=== PATIENT | female | born 1950 | race Caucasian/White ===

== ENCOUNTER 2022-04-08 15:29 | Inpatient (IN) | payer MEDICAID ==
[~2022-04-08] VITALS: Ht 154.9 cm; Wt 59.9 kg
[2022-04-08] MEDS ORDERED: SODIUM CHLORIDE 0.9% 1,000 ML IV ONE (16:45)
[2022-04-08] MEDS ORDERED: CEFTRIAXONE 1GM PREMIX 50 ML IV ONE (16:45)
[2022-04-08] MEDS ORDERED: VANCOMYCIN 1G PREMIX 200 ML IV SCH (16:45)
[2022-04-08] MEDS ORDERED: CEFTRIAXONE 1GM PREMIX 50 ML IV NR (18:30)
[2022-04-08 18:34] LABS: HEMATOCRIT. 23.1 % (36.0-48.0); HEMOGLOBIN. 7.4 g/dL (12.0-16.0); MEAN CORPUSCULAR HEMOGLOBIN 30.5 pg (28.0-32.0); MEAN CORPUSCULAR VOLUME 95.1 fL (81.0-99.0); MEAN PLATELET VOLUME 8.6 fl (7.4-10.4); PLATELET 314 x1000/uL (130-400); RED BLOOD CELL COUNT 2.43 mill/uL (4.2-5.4); RED CELL DISTRIBUTION WIDTH 15.2 % (11.6-14.6)
[2022-04-08 18:42] LABS: CHLORIDE 99 mEq/L (98-107)
[2022-04-08 19:05] LABS: PLATELET ESTIMATE NORMAL
[2022-04-08] MEDS ORDERED: DEXTROSE 50% WATER 50ML SYRINGE IV PRN (23:15)
[2022-04-08] MEDS ORDERED: ONDANSETRON HCL 4MG/2ML INJ IV PRN (23:15)
[2022-04-08] MEDS ORDERED: CLONIDINE 0.1MG TABLET PO PRN (23:15)
[2022-04-08] MEDS ORDERED: ACETAMINOPHEN 325MG TABLET PO PRN (23:15)
[2022-04-08] MEDS ORDERED: ZOLPIDEM TARTRATE 5MG TABLET PO PRN (23:15)
[2022-04-08] MEDS ORDERED: IPRATROPIUM/ALBUTEROL 0.5-3(2.5)MG/3ML NEB HHN PRN (23:15)
[2022-04-08] MEDS ORDERED: GUAIFENESIN 200MG/10ML SUGAR FREE UDC PO PRN (23:15)
[2022-04-09] VITALS (8 sets, daily range): BP systolic 98–121; BP diastolic 45–59
[2022-04-09] MEDS ORDERED: CEFTRIAXONE 1GM PREMIX 50 ML IV SCH
[2022-04-09 02:22] LABS: VITAMIN B12 SERUM > 2000.0 pg/mL (211-911)
[2022-04-09] MEDS ORDERED: METRONIDAZOLE 500 MG PREMIX 100 ML IV SCH (06:00)
[2022-04-09] MEDS ORDERED: VANCOMYCIN 1G PREMIX 200 ML IV NR (08:00)
[2022-04-09] MEDS: BLOOD SUGAR DIAGNOSTIC STRIP TEST SCH ×3 (11:50→21:42)
[2022-04-09] MEDS: INSULIN LISPRO 100 UNITS/ML SUBCUT SCH ×3 (12:20→21:00)
[2022-04-09] MEDS: ENOXAPARIN 30MG/0.3ML SYR SUBCUT SCH (12:32)
[2022-04-09] MEDS ORDERED: ATORVASTATIN CALCIUM 40MG TABLET PO SCH (21:00)
[2022-04-09 21:16] LABS: CREATINE KINASE MB FRACTION 8.3 ng/mL (0.5-3.6)
[2022-04-09] MEDS: FAMOTIDINE 20MG TABLET PO SCH (21:38)
[2022-04-09] MEDS: ATORVASTATIN CALCIUM 40MG TABLET PO SCH (21:39)
[2022-04-09] MEDS ORDERED: FUROSEMIDE 40MG/4ML VIAL IVP NR (22:15)
[2022-04-09] MEDS: CEFTRIAXONE 1,000 MG in DEXTROSE 5% WATER 50 ML IV SCH (22:37)
[2022-04-10] VITALS (15 sets, daily range): BP systolic 103–142; BP diastolic 53–73
[2022-04-10] MEDS: BLOOD SUGAR DIAGNOSTIC STRIP TEST SCH ×4 (06:55→21:00)
[2022-04-10] MEDS: INSULIN LISPRO 100 UNITS/ML SUBCUT SCH ×4 (07:20→22:25)
[2022-04-10 07:47] LABS: CHLORIDE 102 mEq/L (98-107)
[2022-04-10 07:53] LABS: BASOPHILS % 0.5 % (0.0-2.0); EOSINOPHILS % 0.7 % (0.0-5.0); LYMPHOCYTES % 9.5 % (20.0-50.0); MEAN CORPUSCULAR HEMOGLOBIN 30.6 pg (28.0-32.0); MEAN CORPUSCULAR VOLUME 99.3 fL (81.0-99.0); MEAN PLATELET VOLUME 8.8 fl (7.4-10.4); MONOCYTES % 4.8 % (2.0-8.0); NEUTROPHILS % 84.5 % (40.0-76.0); PLATELET 267 x1000/uL (130-400); RED BLOOD CELL COUNT 2.08 mill/uL (4.2-5.4); RED CELL DISTRIBUTION WIDTH 16.2 % (11.6-14.6)
[2022-04-10 07:56] LABS: PHOSPHORUS 4.3 mg/dL (2.5-4.9)
[2022-04-10 07:59] LABS: CREATINE KINASE MB FRACTION 6.1 ng/mL (0.5-3.6)
[2022-04-10 08:09] LABS: HEMATOCRIT. 20.7 % (36.0-48.0); HEMOGLOBIN. 6.4 g/dL (12.0-16.0)
[2022-04-10] MEDS: ASPIRIN 81MG TABLET PO SCH (08:48)
[2022-04-10] MEDS: EZETIMIBE 10MG TABLET PO SCH (08:48)
[2022-04-10] MEDS: ENOXAPARIN 30MG/0.3ML SYR SUBCUT SCH (08:49)
[2022-04-10] MEDS: ISOSORBIDE MONONITRATE 60MG TABLET SR 24HR PO SCH (08:49)
[2022-04-10] MEDS ORDERED: SODIUM POLYSTYRENE SULFONATE 15 G/60 ML BOT PO SCH (10:00)
[2022-04-10] MEDS ORDERED: VANCOMYCIN 750MG PREMIX 150 ML IV SCH (14:00)
[2022-04-10 14:20] LABS: HEPATITIS B SURFACE ANTIGEN NEGATIVE
[2022-04-10] MEDS: CEFTRIAXONE 1,000 MG in DEXTROSE 5% WATER 50 ML IV SCH (18:40)
[2022-04-10] MEDS: FAMOTIDINE 20MG TABLET PO SCH (22:11)
[2022-04-10] MEDS: ATORVASTATIN CALCIUM 40MG TABLET PO SCH (22:11)
[2022-04-10] MEDS: EPOETIN ALFA-EPBX 4,000 UNIT/ML VIAL SUBCUT SCH (22:27)
[2022-04-11] VITALS (9 sets, daily range): BP systolic 106–145; BP diastolic 47–79
[2022-04-11] MEDS: BLOOD SUGAR DIAGNOSTIC STRIP TEST SCH ×4 (06:50→20:57)
[2022-04-11 06:59] LABS: BASOPHILS % 0.8 % (0.0-2.0); EOSINOPHILS % 1.2 % (0.0-5.0); LYMPHOCYTES % 10.4 % (20.0-50.0); MEAN CORPUSCULAR HEMOGLOBIN 31.4 pg (28.0-32.0); MEAN CORPUSCULAR VOLUME 95.9 fL (81.0-99.0); MEAN PLATELET VOLUME 9.1 fl (7.4-10.4); MONOCYTES % 5.5 % (2.0-8.0); NEUTROPHILS % 82.1 % (40.0-76.0); PLATELET 272 x1000/uL (130-400); RED BLOOD CELL COUNT 2.07 mill/uL (4.2-5.4); RED CELL DISTRIBUTION WIDTH 15.6 % (11.6-14.6)
[2022-04-11] MEDS: INSULIN LISPRO 100 UNITS/ML SUBCUT SCH ×4 (07:20→21:15)
[2022-04-11 07:49] LABS: CHLORIDE 102 mEq/L (98-107)
[2022-04-11 08:00] LABS: HEMATOCRIT. 19.9 % (36.0-48.0); HEMOGLOBIN. 6.5 g/dL (12.0-16.0)
[2022-04-11 08:04] LABS: PHOSPHORUS 3.6 mg/dL (2.5-4.9)
[2022-04-11] MEDS: ISOSORBIDE MONONITRATE 60MG TABLET SR 24HR PO SCH (09:25)
[2022-04-11] MEDS: ASPIRIN 81MG TABLET PO SCH (09:25)
[2022-04-11] MEDS: EZETIMIBE 10MG TABLET PO SCH (09:25)
[2022-04-11] MEDS: ATORVASTATIN CALCIUM 40MG TABLET PO SCH (20:56)
[2022-04-11] MEDS: FAMOTIDINE 20MG TABLET PO SCH (20:56)
[2022-04-11] MEDS: CEFTRIAXONE 1,000 MG in DEXTROSE 5% WATER 50 ML IV SCH (20:57)
[2022-04-12] VITALS: BP 142/75
[2022-04-12 00:54] LABS: HEMATOCRIT 25.9 % (36.0-48.0); HEMOGLOBIN 8.5 g/dL (12.0-16.0)
[2022-04-12 02:08] LABS: INR 1.1; PROTHROMBIN TIME 11.9 sec (9.6-11.0)
[2022-04-12 04:00] VITALS: BP 135/74
[2022-04-12 06:34] LABS: BASOPHILS % 0.6 % (0.0-2.0); EOSINOPHILS % 1.8 % (0.0-5.0); HEMATOCRIT. 24.5 % (36.0-48.0); HEMOGLOBIN. 8.1 g/dL (12.0-16.0); LYMPHOCYTES % 10.5 % (20.0-50.0); MEAN CORPUSCULAR HEMOGLOBIN 31.3 pg (28.0-32.0); MEAN CORPUSCULAR VOLUME 94.7 fL (81.0-99.0); MEAN PLATELET VOLUME 8.8 fl (7.4-10.4); MONOCYTES % 5.7 % (2.0-8.0); NEUTROPHILS % 81.4 % (40.0-76.0); PLATELET 284 x1000/uL (130-400); RED BLOOD CELL COUNT 2.59 mill/uL (4.2-5.4); RED CELL DISTRIBUTION WIDTH 15.6 % (11.6-14.6)
[2022-04-12] MEDS: BLOOD SUGAR DIAGNOSTIC STRIP TEST SCH ×4 (06:46→21:57)
[2022-04-12] MEDS: INSULIN LISPRO 100 UNITS/ML SUBCUT SCH ×4 (07:20→22:07)
[2022-04-12] MEDS ORDERED: IODIXANOL 320MG/ML 100 ML BOTTLE IV ONE ×2 (07:30→08:33)
[2022-04-12 07:39] LABS: PHOSPHORUS 3.9 mg/dL (2.5-4.9)
[2022-04-12] MEDS ORDERED: HEPARIN 1000 UNITS/ML 10ML ONE (07:43)
[2022-04-12] MEDS ORDERED: FENTANYL CITRATE/PF 50MCG/ML 2ML VIAL ONE (07:44)
[2022-04-12] MEDS ORDERED: MIDAZOLAM HCL 2 MG/2 ML VIAL ONE (07:44)
[2022-04-12 08:00] VITALS: BP 144/80
[2022-04-12] MEDS ORDERED: LIDOCAINE HCL/PF 1% 10 MG/ML 5ML VIAL ONE ×2 (08:05→08:06)
[2022-04-12] MEDS: ASPIRIN 81MG TABLET PO SCH (09:32)
[2022-04-12] MEDS: ISOSORBIDE MONONITRATE 60MG TABLET SR 24HR PO SCH (09:33)
[2022-04-12] MEDS: EZETIMIBE 10MG TABLET PO SCH (09:33)
[2022-04-12 12:00] VITALS: BP 147/77
[2022-04-12 16:00] VITALS: BP 144/77
[2022-04-12] MEDS ORDERED: VANCOMYCIN 750MG PREMIX 150 ML IV NR (17:00)
[2022-04-12] MEDS: CEFTRIAXONE 1,000 MG in DEXTROSE 5% WATER 50 ML IV SCH (19:59)
[2022-04-12 20:00] VITALS: BP 148/72
[2022-04-12] MEDS: ATORVASTATIN CALCIUM 40MG TABLET PO SCH (21:41)
[2022-04-12] MEDS: FAMOTIDINE 20MG TABLET PO SCH (21:41)
[2022-04-13] VITALS (16 sets, daily range): BP systolic 123–162; BP diastolic 63–87
[2022-04-13] MEDS: BLOOD SUGAR DIAGNOSTIC STRIP TEST SCH ×4 (06:59→20:30)
[2022-04-13] MEDS: INSULIN LISPRO 100 UNITS/ML SUBCUT SCH ×4 (07:20→20:44)
[2022-04-13 07:53] LABS: BASOPHILS % 0.9 % (0.0-2.0); EOSINOPHILS % 1.6 % (0.0-5.0); HEMATOCRIT. 26.5 % (36.0-48.0); HEMOGLOBIN. 8.8 g/dL (12.0-16.0); LYMPHOCYTES % 8.4 % (20.0-50.0); MEAN CORPUSCULAR HEMOGLOBIN 31.6 pg (28.0-32.0); MEAN PLATELET VOLUME 9.2 fl (7.4-10.4); MONOCYTES % 5.1 % (2.0-8.0); PLATELET 317 x1000/uL (130-400); RED BLOOD CELL COUNT 2.79 mill/uL (4.2-5.4); RED CELL DISTRIBUTION WIDTH 15.3 % (11.6-14.6)
[2022-04-13 10:18] LABS: PHOSPHORUS 4.4 mg/dL (2.5-4.9)
[2022-04-13] MEDS: ISOSORBIDE MONONITRATE 60MG TABLET SR 24HR PO SCH (12:51)
[2022-04-13] MEDS: ASPIRIN 81MG TABLET PO SCH (12:51)
[2022-04-13] MEDS: EZETIMIBE 10MG TABLET PO SCH (12:51)
[2022-04-13] MEDS: ENOXAPARIN 30MG/0.3ML SYR SUBCUT SCH (17:25)
[2022-04-13] MEDS: CEFTRIAXONE 1,000 MG in DEXTROSE 5% WATER 50 ML IV SCH (20:20)
[2022-04-13] MEDS: FAMOTIDINE 20MG TABLET PO SCH (20:41)
[2022-04-13] MEDS: ATORVASTATIN CALCIUM 40MG TABLET PO SCH (20:41)
[2022-04-13] MEDS ORDERED: VANCOMYCIN 500MG PREMIX 100 ML IV SCH (21:00)
[2022-04-13] MEDS: EPOETIN ALFA-EPBX 4,000 UNIT/ML VIAL SUBCUT SCH (22:18)
[2022-04-14] VITALS: BP 130/60
[2022-04-14 04:00] VITALS: BP_SYST 130; BP_SYST 140; BP_DIAS 60; BP_DIAS 68
[2022-04-14] MEDS: BLOOD SUGAR DIAGNOSTIC STRIP TEST SCH ×4 (06:30→21:44)
[2022-04-14] MEDS: INSULIN LISPRO 100 UNITS/ML SUBCUT SCH ×4 (07:20→21:00)
[2022-04-14 08:00] VITALS: BP 128/66
[2022-04-14] MEDS: EZETIMIBE 10MG TABLET PO SCH (09:00)
[2022-04-14] MEDS: ISOSORBIDE MONONITRATE 60MG TABLET SR 24HR PO SCH (09:00)
[2022-04-14] MEDS: ASPIRIN 81MG TABLET PO SCH (09:00)
[2022-04-14 12:00] VITALS: BP 132/60
[2022-04-14 16:00] VITALS: BP 142/70
[2022-04-14] MEDS: ENOXAPARIN 30MG/0.3ML SYR SUBCUT SCH (18:17)
[2022-04-14 20:00] VITALS: BP 132/62
[2022-04-14] MEDS: CEFTRIAXONE 1,000 MG in DEXTROSE 5% WATER 50 ML IV SCH (20:28)
[2022-04-14] MEDS: FAMOTIDINE 20MG TABLET PO SCH (21:36)
[2022-04-14] MEDS: ATORVASTATIN CALCIUM 40MG TABLET PO SCH (21:36)
[2022-04-15] VITALS (13 sets, daily range): BP systolic 139–188; BP diastolic 62–80
[2022-04-15 06:22] LABS: BASOPHILS % 0.8 % (0.0-2.0); EOSINOPHILS % 1.4 % (0.0-5.0); HEMATOCRIT. 26.1 % (36.0-48.0); HEMOGLOBIN. 8.5 g/dL (12.0-16.0); LYMPHOCYTES % 11.6 % (20.0-50.0); MEAN CORPUSCULAR HEMOGLOBIN 31.5 pg (28.0-32.0); MEAN PLATELET VOLUME 8.1 fl (7.4-10.4); MONOCYTES % 4.5 % (2.0-8.0); NEUTROPHILS % 81.7 % (40.0-76.0); PLATELET 308 x1000/uL (130-400); RED BLOOD CELL COUNT 2.71 mill/uL (4.2-5.4); RED CELL DISTRIBUTION WIDTH 14.9 % (11.6-14.6)
[2022-04-15 06:54] LABS: PHOSPHORUS 3.6 mg/dL (2.5-4.9)
[2022-04-15] MEDS: INSULIN LISPRO 100 UNITS/ML SUBCUT SCH ×4 (07:20→21:00)
[2022-04-15] MEDS: BLOOD SUGAR DIAGNOSTIC STRIP TEST SCH ×4 (07:37→21:34)
[2022-04-15] MEDS: EZETIMIBE 10MG TABLET PO SCH (08:52)
[2022-04-15] MEDS: ASPIRIN 81MG TABLET PO SCH (08:53)
[2022-04-15] MEDS: ISOSORBIDE MONONITRATE 60MG TABLET SR 24HR PO SCH (09:00)
[2022-04-15] MEDS: ENOXAPARIN 30MG/0.3ML SYR SUBCUT SCH (17:37)
[2022-04-15] MEDS: CEFTRIAXONE 1,000 MG in DEXTROSE 5% WATER 50 ML IV SCH (21:30)
[2022-04-15] MEDS: ATORVASTATIN CALCIUM 40MG TABLET PO SCH (21:50)
[2022-04-15] MEDS: FAMOTIDINE 20MG TABLET PO SCH (21:50)
[2022-04-15] MEDS: EPOETIN ALFA-EPBX 4,000 UNIT/ML VIAL SUBCUT SCH (21:53)
[2022-04-16 00:35] VITALS: BP 147/75
[2022-04-16] MEDS: ACETAMINOPHEN 325MG TABLET PO PRN ×2 (02:55→20:47)
[2022-04-16 04:00] VITALS: BP 157/73
[2022-04-16] MEDS: BLOOD SUGAR DIAGNOSTIC STRIP TEST SCH ×3 (06:23→20:38)
[2022-04-16] MEDS: INSULIN LISPRO 100 UNITS/ML SUBCUT SCH ×3 (07:20→20:54)
[2022-04-16 08:00] VITALS: BP 137/71
[2022-04-16] MEDS: ASPIRIN 81MG TABLET PO SCH (08:15)
[2022-04-16] MEDS: ISOSORBIDE MONONITRATE 60MG TABLET SR 24HR PO SCH (08:16)
[2022-04-16] MEDS: EZETIMIBE 10MG TABLET PO SCH (08:17)
[2022-04-16 09:20] LABS: BASOPHILS % 0.6 % (0.0-2.0); EOSINOPHILS % 1.1 % (0.0-5.0); HEMATOCRIT. 25.5 % (36.0-48.0); HEMOGLOBIN. 8.6 g/dL (12.0-16.0); LYMPHOCYTES % 10.8 % (20.0-50.0); MEAN CORPUSCULAR VOLUME 95.2 fL (81.0-99.0); MEAN PLATELET VOLUME 8.5 fl (7.4-10.4); MONOCYTES % 4.3 % (2.0-8.0); NEUTROPHILS % 83.2 % (40.0-76.0); PLATELET 293 x1000/uL (130-400); RED BLOOD CELL COUNT 2.68 mill/uL (4.2-5.4); RED CELL DISTRIBUTION WIDTH 14.9 % (11.6-14.6)
[2022-04-16 09:55] LABS: PHOSPHORUS 3.2 mg/dL (2.5-4.9)
[2022-04-16] MEDS ORDERED: VANCOMYCIN 500MG PREMIX 100 ML IV NR (10:30)
[2022-04-16] MEDS ORDERED: VANCOMYCIN HCL 1 GM/VIAL ONE (11:10)
[2022-04-16] MEDS ORDERED: LIDOCAINE HCL 1% 10 MG/ML 10ML VIAL ONE (11:11)
[2022-04-16] MEDS ORDERED: BUPIVACAINE HCL/PF 0.5% (5MG/ML) 10ML ONE (11:11)
[2022-04-16] MEDS ORDERED: PROPOFOL 200MG/20ML VIAL IV ONE (12:24)
[2022-04-16] MEDS ORDERED: ONDANSETRON HCL 4MG/2ML INJ IV PRN (12:45)
[2022-04-16] MEDS ORDERED: HYDROMORPHONE HCL/PF 2MG/ML CPJ IV PRN (12:45)
[2022-04-16] MEDS ORDERED: NALOXONE HCL 0.4MG/ML VIAL IV PRN (13:00)
[2022-04-16] MEDS: ENOXAPARIN 30MG/0.3ML SYR SUBCUT SCH (18:00)
[2022-04-16 20:00] VITALS: BP 150/100
[2022-04-16] MEDS: FAMOTIDINE 20MG TABLET PO SCH (20:41)
[2022-04-16] MEDS: ATORVASTATIN CALCIUM 40MG TABLET PO SCH (20:41)
[2022-04-16] MEDS: CEFTRIAXONE 1,000 MG in DEXTROSE 5% WATER 50 ML IV SCH (20:58)
[2022-04-17] VITALS (15 sets, daily range): BP systolic 117–138; BP diastolic 41–76
[2022-04-17] MEDS: BLOOD SUGAR DIAGNOSTIC STRIP TEST SCH ×4 (06:45→20:38)
[2022-04-17 07:17] LABS: HEMATOCRIT. 29.9 % (36.0-48.0); HEMOGLOBIN. 9.8 g/dL (12.0-16.0); MEAN CORPUSCULAR HEMOGLOBIN 31.1 pg (28.0-32.0); MEAN CORPUSCULAR VOLUME 95.2 fL (81.0-99.0); MEAN PLATELET VOLUME 8.9 fl (7.4-10.4); PLATELET 320 x1000/uL (130-400); RED BLOOD CELL COUNT 3.14 mill/uL (4.2-5.4); RED CELL DISTRIBUTION WIDTH 14.9 % (11.6-14.6)
[2022-04-17 07:44] LABS: PHOSPHORUS 4.1 mg/dL (2.5-4.9)
[2022-04-17] MEDS: EZETIMIBE 10MG TABLET PO SCH (09:22)
[2022-04-17] MEDS: DOCUSATE SODIUM 100MG CAPSULE PO PRN (09:22)
[2022-04-17] MEDS: ISOSORBIDE MONONITRATE 60MG TABLET SR 24HR PO SCH (09:22)
[2022-04-17] MEDS: ASPIRIN 81MG TABLET PO SCH (09:22)
[2022-04-17] MEDS: INSULIN LISPRO 100 UNITS/ML SUBCUT SCH ×4 (09:23→21:04)
[2022-04-17] MEDS: ACETAMINOPHEN 325MG TABLET PO PRN ×3 (09:28→21:03)
[2022-04-17 14:12] LABS: NUCLEATED RED BLOOD CELLS 1 /100 WBC; PLATELET ESTIMATE NORMAL
[2022-04-17] MEDS ORDERED: VANCOMYCIN 750MG PREMIX 150 ML IV NR (16:00)
[2022-04-17] MEDS: ENOXAPARIN 30MG/0.3ML SYR SUBCUT SCH (17:52)
[2022-04-17] MEDS: CEFTRIAXONE 1,000 MG in DEXTROSE 5% WATER 50 ML IV SCH (20:43)
[2022-04-17] MEDS: FAMOTIDINE 20MG TABLET PO SCH (21:02)
[2022-04-17] MEDS: ATORVASTATIN CALCIUM 40MG TABLET PO SCH (21:02)
[2022-04-18 00:11] VITALS: BP 141/68
[2022-04-18 03:34] VITALS: BP 137/66
[2022-04-18 05:51] LABS: BASOPHILS % 0.2 % (0.0-2.0); EOSINOPHILS % 0.8 % (0.0-5.0); LYMPHOCYTES % 11.8 % (20.0-50.0); MEAN CORPUSCULAR HEMOGLOBIN 31.1 pg (28.0-32.0); MEAN CORPUSCULAR VOLUME 94.2 fL (81.0-99.0); MEAN PLATELET VOLUME 8.5 fl (7.4-10.4); MONOCYTES % 4.5 % (2.0-8.0); NEUTROPHILS % 82.7 % (40.0-76.0); PLATELET 270 x1000/uL (130-400); RED CELL DISTRIBUTION WIDTH 15.3 % (11.6-14.6)
[2022-04-18 06:09] LABS: PHOSPHORUS 3.7 mg/dL (2.5-4.9)
[2022-04-18] MEDS: BLOOD SUGAR DIAGNOSTIC STRIP TEST SCH ×4 (06:22→20:15)
[2022-04-18 06:42] LABS: HEMATOCRIT. 24.5 % (36.0-48.0); HEMOGLOBIN. 8.1 g/dL (12.0-16.0)
[2022-04-18 08:00] VITALS: BP 134/61
[2022-04-18] MEDS: INSULIN LISPRO 100 UNITS/ML SUBCUT SCH ×4 (08:22→20:38)
[2022-04-18] MEDS: ASPIRIN 81MG TABLET PO SCH (08:22)
[2022-04-18] MEDS: ISOSORBIDE MONONITRATE 60MG TABLET SR 24HR PO SCH (08:23)
[2022-04-18] MEDS: EZETIMIBE 10MG TABLET PO SCH (08:24)
[2022-04-18] MEDS: ACETAMINOPHEN 325MG TABLET PO PRN ×2 (09:38→20:39)
[2022-04-18 12:00] VITALS: BP 132/66
[2022-04-18 16:00] VITALS: BP 111/63
[2022-04-18] MEDS: ENOXAPARIN 30MG/0.3ML SYR SUBCUT SCH (17:18)
[2022-04-18 20:00] VITALS: BP 117/51
[2022-04-18] MEDS: CEFTRIAXONE 1,000 MG in DEXTROSE 5% WATER 50 ML IV SCH (20:31)
[2022-04-18] MEDS: ATORVASTATIN CALCIUM 40MG TABLET PO SCH (20:35)
[2022-04-18] MEDS: FAMOTIDINE 20MG TABLET PO SCH (20:35)
[2022-04-19] VITALS: BP 120/46
[2022-04-19 04:00] VITALS: BP 133/53
[2022-04-19] MEDS: BLOOD SUGAR DIAGNOSTIC STRIP TEST SCH ×4 (05:55→19:50)
[2022-04-19] MEDS: INSULIN LISPRO 100 UNITS/ML SUBCUT SCH ×4 (05:55→20:43)
[2022-04-19 06:58] LABS: BASOPHILS % 0.3 % (0.0-2.0); EOSINOPHILS % 1.2 % (0.0-5.0); HEMATOCRIT. 23.8 % (36.0-48.0); HEMOGLOBIN. 7.9 g/dL (12.0-16.0); LYMPHOCYTES % 11.6 % (20.0-50.0); MEAN CORPUSCULAR HEMOGLOBIN 31.1 pg (28.0-32.0); MEAN CORPUSCULAR VOLUME 94.2 fL (81.0-99.0); MEAN PLATELET VOLUME 8.4 fl (7.4-10.4); MONOCYTES % 5.4 % (2.0-8.0); NEUTROPHILS % 81.5 % (40.0-76.0); PLATELET 262 x1000/uL (130-400); RED BLOOD CELL COUNT 2.53 mill/uL (4.2-5.4); RED CELL DISTRIBUTION WIDTH 15.3 % (11.6-14.6)
[2022-04-19 07:31] LABS: PHOSPHORUS 4.3 mg/dL (2.5-4.9)
[2022-04-19 08:00] VITALS: BP 153/50
[2022-04-19] MEDS: ASPIRIN 81MG TABLET PO SCH (09:14)
[2022-04-19] MEDS: EZETIMIBE 10MG TABLET PO SCH (09:16)
[2022-04-19] MEDS: ISOSORBIDE MONONITRATE 60MG TABLET SR 24HR PO SCH (09:16)
[2022-04-19 12:00] VITALS: BP 142/52
[2022-04-19 16:00] VITALS: BP 144/51
[2022-04-19] MEDS: ENOXAPARIN 30MG/0.3ML SYR SUBCUT SCH (17:06)
[2022-04-19 20:00] VITALS: BP 145/63
[2022-04-19] MEDS: CEFTRIAXONE 1,000 MG in DEXTROSE 5% WATER 50 ML IV SCH (20:26)
[2022-04-19] MEDS: ATORVASTATIN CALCIUM 40MG TABLET PO SCH (20:38)
[2022-04-19] MEDS: FAMOTIDINE 20MG TABLET PO SCH (20:39)
[2022-04-19] MEDS: ACETAMINOPHEN 325MG TABLET PO PRN (20:39)
[2022-04-19 21:16] LABS: HEPATITIS B SURFACE ANTIGEN NEGATIVE
[2022-04-19] MEDS ORDERED: MEROPENEM 1,000 MG in SODIUM CHLORIDE 0.9% 100 ML IV SCH (22:00)
[2022-04-19] MEDS ORDERED: *PATIENT'S OWN MEDICATION STORAGE XX SCH (23:30)
[2022-04-20] VITALS (14 sets, daily range): BP systolic 116–141; BP diastolic 43–73
[2022-04-20] MEDS: BLOOD SUGAR DIAGNOSTIC STRIP TEST SCH ×4 (05:18→21:00)
[2022-04-20] MEDS: INSULIN LISPRO 100 UNITS/ML SUBCUT SCH ×4 (06:20→21:15)
[2022-04-20 06:50] LABS: BASOPHILS % 0.3 % (0.0-2.0); EOSINOPHILS % 1.1 % (0.0-5.0); HEMATOCRIT. 27.6 % (36.0-48.0); HEMOGLOBIN. 9.1 g/dL (12.0-16.0); LYMPHOCYTES % 9.7 % (20.0-50.0); MEAN CORPUSCULAR HEMOGLOBIN 31.2 pg (28.0-32.0); MEAN CORPUSCULAR VOLUME 94.7 fL (81.0-99.0); MONOCYTES % 6.6 % (2.0-8.0); NEUTROPHILS % 82.3 % (40.0-76.0); PLATELET 264 x1000/uL (130-400); RED BLOOD CELL COUNT 2.92 mill/uL (4.2-5.4); RED CELL DISTRIBUTION WIDTH 15.7 % (11.6-14.6)
[2022-04-20] MEDS: ISOSORBIDE MONONITRATE 60MG TABLET SR 24HR PO SCH (09:00)
[2022-04-20] MEDS: ASPIRIN 81MG TABLET PO SCH (09:00)
[2022-04-20] MEDS: EZETIMIBE 10MG TABLET PO SCH (09:00)
[2022-04-20 10:29] LABS: PHOSPHORUS 4.7 mg/dL (2.5-4.9)
[2022-04-20] MEDS: ACETAMINOPHEN 325MG TABLET PO PRN ×2 (10:39→18:31)
[2022-04-20] MEDS: ENOXAPARIN 30MG/0.3ML SYR SUBCUT SCH (18:26)
[2022-04-20] MEDS: FAMOTIDINE 20MG TABLET PO SCH (21:12)
[2022-04-20] MEDS: ATORVASTATIN CALCIUM 40MG TABLET PO SCH (21:12)
[2022-04-20] MEDS ORDERED: MEROPENEM-0.9% SODIUM CHLORIDE 50 ML IV SCH (22:00)
[2022-04-21] VITALS (13 sets, daily range): BP systolic 82–142; BP diastolic 38–80
[2022-04-21] MEDS: ACETAMINOPHEN 325MG TABLET PO PRN ×3 (04:10→23:34)
[2022-04-21] MEDS: BLOOD SUGAR DIAGNOSTIC STRIP TEST SCH ×4 (05:21→21:00)
[2022-04-21] MEDS: INSULIN LISPRO 100 UNITS/ML SUBCUT SCH ×4 (05:57→21:17)
[2022-04-21 06:15] LABS: BASOPHILS % 0.4 % (0.0-2.0); EOSINOPHILS % 1.5 % (0.0-5.0); HEMATOCRIT. 25.4 % (36.0-48.0); HEMOGLOBIN. 8.4 g/dL (12.0-16.0); LYMPHOCYTES % 11.2 % (20.0-50.0); MEAN CORPUSCULAR HEMOGLOBIN 31.4 pg (28.0-32.0); MEAN CORPUSCULAR VOLUME 94.9 fL (81.0-99.0); MEAN PLATELET VOLUME 8.5 fl (7.4-10.4); MONOCYTES % 7.3 % (2.0-8.0); NEUTROPHILS % 79.6 % (40.0-76.0); PLATELET 225 x1000/uL (130-400); RED BLOOD CELL COUNT 2.68 mill/uL (4.2-5.4)
[2022-04-21 06:32] LABS: PHOSPHORUS 4.6 mg/dL (2.5-4.9)
[2022-04-21] MEDS: ASPIRIN 81MG TABLET PO SCH (09:00)
[2022-04-21] MEDS: ISOSORBIDE MONONITRATE 60MG TABLET SR 24HR PO SCH (09:00)
[2022-04-21] MEDS: EZETIMIBE 10MG TABLET PO SCH (09:00)
[2022-04-21] MEDS ORDERED: MEROPENEM XX SCH (15:15)
[2022-04-21] MEDS ORDERED: VANCOMYCIN XX SCH (15:15)
[2022-04-21] MEDS: MEROPENEM 500MG in NORMAL SALINE 50ML IV SCH (18:00)
[2022-04-21] MEDS ORDERED: VANCOMYCIN 750MG PREMIX 150 ML IV NR (18:00)
[2022-04-21] MEDS: ENOXAPARIN 30MG/0.3ML SYR SUBCUT SCH (18:24)
[2022-04-21] MEDS: ATORVASTATIN CALCIUM 40MG TABLET PO SCH (21:11)
[2022-04-21] MEDS: FAMOTIDINE 20MG TABLET PO SCH (21:12)
[2022-04-22] VITALS: BP 147/59
[2022-04-22 04:00] VITALS: BP 125/49
[2022-04-22] MEDS: ACETAMINOPHEN 325MG TABLET PO PRN (05:18)
[2022-04-22] MEDS: BLOOD SUGAR DIAGNOSTIC STRIP TEST SCH ×4 (06:45→21:00)
[2022-04-22] MEDS: INSULIN LISPRO 100 UNITS/ML SUBCUT SCH ×4 (07:15→21:40)
[2022-04-22 08:00] VITALS: BP 122/44
[2022-04-22] MEDS: ASPIRIN 81MG TABLET PO SCH (09:06)
[2022-04-22] MEDS: EZETIMIBE 10MG TABLET PO SCH (09:06)
[2022-04-22] MEDS: ISOSORBIDE MONONITRATE 60MG TABLET SR 24HR PO SCH (09:32)
[2022-04-22 12:00] VITALS: BP 120/60
[2022-04-22 16:00] VITALS: BP 136/44
[2022-04-22] MEDS: MEROPENEM 500MG in NORMAL SALINE 50ML IV SCH (17:35)
[2022-04-22] MEDS: ENOXAPARIN 30MG/0.3ML SYR SUBCUT SCH (17:38)
[2022-04-22 20:00] VITALS: BP 143/52
[2022-04-22] MEDS: ATORVASTATIN CALCIUM 40MG TABLET PO SCH (21:37)
[2022-04-22] MEDS: FAMOTIDINE 20MG TABLET PO SCH (21:37)
[2022-04-23] VITALS: BP 126/53
[2022-04-23 04:00] VITALS: BP 132/57
[2022-04-23] MEDS: ACETAMINOPHEN 325MG TABLET PO PRN ×2 (05:18→23:32)
[2022-04-23 05:40] LABS: BASOPHILS % 0.8 % (0.0-2.0); EOSINOPHILS % 3.1 % (0.0-5.0); HEMATOCRIT. 23.8 % (36.0-48.0); LYMPHOCYTES % 9.7 % (20.0-50.0); MEAN CORPUSCULAR HEMOGLOBIN 32.1 pg (28.0-32.0); MEAN CORPUSCULAR VOLUME 95.8 fL (81.0-99.0); MEAN PLATELET VOLUME 8.2 fl (7.4-10.4); MONOCYTES % 7.1 % (2.0-8.0); NEUTROPHILS % 79.3 % (40.0-76.0); PLATELET 202 x1000/uL (130-400); RED BLOOD CELL COUNT 2.49 mill/uL (4.2-5.4)
[2022-04-23 06:04] LABS: PHOSPHORUS 5.6 mg/dL (2.5-4.9)
[2022-04-23] MEDS: BLOOD SUGAR DIAGNOSTIC STRIP TEST SCH ×4 (06:45→20:56)
[2022-04-23] MEDS: INSULIN LISPRO 100 UNITS/ML SUBCUT SCH ×4 (07:15→20:55)
[2022-04-23 07:48] VITALS: BP 129/67
[2022-04-23] MEDS: ISOSORBIDE MONONITRATE 60MG TABLET SR 24HR PO SCH (09:20)
[2022-04-23] MEDS: ASPIRIN 81MG TABLET PO SCH (09:20)
[2022-04-23] MEDS: EZETIMIBE 10MG TABLET PO SCH (09:20)
[2022-04-23 11:56] VITALS: BP 120/47
[2022-04-23] MEDS ORDERED: VANCOMYCIN 500MG PREMIX 100 ML IV NR (12:00)
[2022-04-23 15:50] VITALS: BP 121/44
[2022-04-23] MEDS: MEROPENEM 500MG in NORMAL SALINE 50ML IV SCH (17:02)
[2022-04-23] MEDS: ENOXAPARIN 30MG/0.3ML SYR SUBCUT SCH (17:48)
[2022-04-23 20:00] VITALS: BP_SYST 111; BP_SYST 133; BP_DIAS 53
[2022-04-23] MEDS: FAMOTIDINE 20MG TABLET PO SCH (20:49)
[2022-04-23] MEDS: ATORVASTATIN CALCIUM 40MG TABLET PO SCH (20:49)
[2022-04-23] MEDS: EPOETIN ALFA-EPBX 4,000 UNIT/ML VIAL SUBCUT SCH (22:09)
[2022-04-23] MEDS: DOCUSATE SODIUM 100MG CAPSULE PO PRN (22:11)
[2022-04-24] VITALS (14 sets, daily range): BP systolic 108–140; BP diastolic 47–58
[2022-04-24] MEDS: BLOOD SUGAR DIAGNOSTIC STRIP TEST SCH ×4 (06:45→20:03)
[2022-04-24] MEDS: INSULIN LISPRO 100 UNITS/ML SUBCUT SCH ×4 (07:15→20:36)
[2022-04-24 10:39] LABS: EOSINOPHILS % 2.1 % (0.0-5.0); HEMATOCRIT. 21.4 % (36.0-48.0); HEMOGLOBIN. 7.1 g/dL (12.0-16.0); LYMPHOCYTES % 8.5 % (20.0-50.0); MEAN CORPUSCULAR HEMOGLOBIN 31.2 pg (28.0-32.0); MEAN CORPUSCULAR VOLUME 94.1 fL (81.0-99.0); MEAN PLATELET VOLUME 8.4 fl (7.4-10.4); MONOCYTES % 3.1 % (2.0-8.0); NEUTROPHILS % 85.3 % (40.0-76.0); PLATELET 169 x1000/uL (130-400); RED BLOOD CELL COUNT 2.27 mill/uL (4.2-5.4); RED CELL DISTRIBUTION WIDTH 16.1 % (11.6-14.6)
[2022-04-24 11:15] LABS: PHOSPHORUS 3.6 mg/dL (2.5-4.9)
[2022-04-24] MEDS: EZETIMIBE 10MG TABLET PO SCH (11:23)
[2022-04-24] MEDS: ISOSORBIDE MONONITRATE 60MG TABLET SR 24HR PO SCH (11:23)
[2022-04-24] MEDS: ASPIRIN 81MG TABLET PO SCH (11:23)
[2022-04-24] MEDS: ENOXAPARIN 30MG/0.3ML SYR SUBCUT SCH (18:07)
[2022-04-24] MEDS: MEROPENEM-0.9% SODIUM CHLORIDE 50 ML IV SCH (18:37)
[2022-04-24] MEDS: FAMOTIDINE 20MG TABLET PO SCH (20:30)
[2022-04-24] MEDS: ATORVASTATIN CALCIUM 40MG TABLET PO SCH (20:30)
[2022-04-24] MEDS ORDERED: ZOLPIDEM TARTRATE 5MG TABLET PO PRN (21:00)
[2022-04-25] VITALS: BP 125/80
[2022-04-25] MEDS: ACETAMINOPHEN 325MG TABLET PO PRN ×3 (05:19→21:19)
[2022-04-25] MEDS: BLOOD SUGAR DIAGNOSTIC STRIP TEST SCH ×4 (05:21→21:00)
[2022-04-25] MEDS: INSULIN LISPRO 100 UNITS/ML SUBCUT SCH ×4 (05:36→21:24)
[2022-04-25 08:00] VITALS: BP 110/51
[2022-04-25] MEDS: ASPIRIN 81MG TABLET PO SCH (10:07)
[2022-04-25] MEDS: ISOSORBIDE MONONITRATE 60MG TABLET SR 24HR PO SCH (10:09)
[2022-04-25] MEDS: EZETIMIBE 10MG TABLET PO SCH (10:09)
[2022-04-25] MEDS: FAMOTIDINE 20MG TABLET PO SCH (10:10)
[2022-04-25 12:00] VITALS: BP 116/51
[2022-04-25] MEDS ORDERED: VANCOMYCIN 500MG PREMIX 100 ML IV SCH (14:00)
[2022-04-25 16:00] VITALS: BP 107/54
[2022-04-25] MEDS: MEROPENEM-0.9% SODIUM CHLORIDE 50 ML IV SCH (17:19)
[2022-04-25 20:00] VITALS: BP 123/58
[2022-04-25] MEDS: ATORVASTATIN CALCIUM 40MG TABLET PO SCH (21:25)
[2022-04-26] VITALS: BP 125/80
[2022-04-26] MEDS: ACETAMINOPHEN 325MG TABLET PO PRN ×2 (02:53→18:15)
[2022-04-26 04:00] VITALS: BP 100/50
[2022-04-26] MEDS: BLOOD SUGAR DIAGNOSTIC STRIP TEST SCH ×4 (06:26→21:37)
[2022-04-26] MEDS: INSULIN LISPRO 100 UNITS/ML SUBCUT SCH ×4 (06:27→21:47)
[2022-04-26 06:52] LABS: MEAN CORPUSCULAR HEMOGLOBIN 30.8 pg (28.0-32.0); MEAN PLATELET VOLUME 8.7 fl (7.4-10.4); PLATELET 172 x1000/uL (130-400); RED BLOOD CELL COUNT 2.05 mill/uL (4.2-5.4); RED CELL DISTRIBUTION WIDTH 15.9 % (11.6-14.6)
[2022-04-26 07:00] LABS: HEMATOCRIT. 19.1 % (36.0-48.0); HEMOGLOBIN. 6.3 g/dL (12.0-16.0)
[2022-04-26 07:41] LABS: PHOSPHORUS 6.5 mg/dL (2.5-4.9)
[2022-04-26 08:00] VITALS: BP 94/43
[2022-04-26] MEDS: ISOSORBIDE MONONITRATE 60MG TABLET SR 24HR PO SCH (09:00)
[2022-04-26] MEDS: ASPIRIN 81MG TABLET PO SCH (09:52)
[2022-04-26] MEDS: EZETIMIBE 10MG TABLET PO SCH (09:52)
[2022-04-26 12:00] VITALS: BP 92/43
[2022-04-26 14:20] LABS: PLATELET ESTIMATE NORMAL
[2022-04-26 16:00] VITALS: BP 111/65
[2022-04-26] MEDS ORDERED: MEROPENEM 500MG in NORMAL SALINE 50ML IV SCH (18:00)
[2022-04-26] MEDS: MEROPENEM-0.9% SODIUM CHLORIDE 50 ML IV SCH (18:20)
[2022-04-26 20:00] VITALS: BP 113/56
[2022-04-26] MEDS: ATORVASTATIN CALCIUM 40MG TABLET PO SCH (21:32)
[2022-04-26] MEDS: FAMOTIDINE 20MG TABLET PO SCH (21:32)
[2022-04-26] MEDS: EPOETIN ALFA-EPBX 4,000 UNIT/ML VIAL SUBCUT SCH (21:32)
[2022-04-27] VITALS (14 sets, daily range): BP systolic 96–135; BP diastolic 51–80
[2022-04-27 06:16] LABS: BASOPHILS % 0.6 % (0.0-2.0); EOSINOPHILS % 1.9 % (0.0-5.0); HEMATOCRIT. 21.7 % (36.0-48.0); HEMOGLOBIN. 7.2 g/dL (12.0-16.0); LYMPHOCYTES % 9.5 % (20.0-50.0); MEAN CORPUSCULAR HEMOGLOBIN 31.4 pg (28.0-32.0); MEAN CORPUSCULAR VOLUME 94.8 fL (81.0-99.0); MEAN PLATELET VOLUME 8.9 fl (7.4-10.4); MONOCYTES % 5.5 % (2.0-8.0); NEUTROPHILS % 82.5 % (40.0-76.0); PLATELET 170 x1000/uL (130-400); RED BLOOD CELL COUNT 2.29 mill/uL (4.2-5.4); RED CELL DISTRIBUTION WIDTH 16.1 % (11.6-14.6)
[2022-04-27 06:22] LABS: PHOSPHORUS 6.9 mg/dL (2.5-4.9)
[2022-04-27] MEDS: BLOOD SUGAR DIAGNOSTIC STRIP TEST SCH ×4 (06:23→21:12)
[2022-04-27] MEDS: INSULIN LISPRO 100 UNITS/ML SUBCUT SCH ×4 (06:27→21:21)
[2022-04-27] MEDS: EZETIMIBE 10MG TABLET PO SCH (08:50)
[2022-04-27] MEDS: ASPIRIN 81MG TABLET PO SCH (08:50)
[2022-04-27] MEDS: ISOSORBIDE MONONITRATE 60MG TABLET SR 24HR PO SCH (08:52)
[2022-04-27] MEDS: MEROPENEM-0.9% SODIUM CHLORIDE 50 ML IV SCH (17:39)
[2022-04-27] MEDS: ENOXAPARIN 30MG/0.3ML SYR SUBCUT SCH (17:40)
[2022-04-27] MEDS ORDERED: VANCOMYCIN 500MG PREMIX 100 ML IV NR (18:00)
[2022-04-27] MEDS: ATORVASTATIN CALCIUM 40MG TABLET PO SCH (21:03)
[2022-04-27] MEDS: FAMOTIDINE 20MG TABLET PO SCH (21:03)
[2022-04-27] MEDS: ACETAMINOPHEN 325MG TABLET PO PRN (21:03)
[2022-04-28] VITALS (9 sets, daily range): BP systolic 93–124; BP diastolic 42–71
[2022-04-28] MEDS: ACETAMINOPHEN 325MG TABLET PO PRN ×2 (02:34→15:01)
[2022-04-28] MEDS: BLOOD SUGAR DIAGNOSTIC STRIP TEST SCH ×4 (06:26→21:00)
[2022-04-28 06:34] LABS: BASOPHILS % 1.1 % (0.0-2.0); EOSINOPHILS % 2.5 % (0.0-5.0); LYMPHOCYTES % 11.7 % (20.0-50.0); MEAN CORPUSCULAR VOLUME 93.4 fL (81.0-99.0); MEAN PLATELET VOLUME 9.4 fl (7.4-10.4); MONOCYTES % 5.3 % (2.0-8.0); NEUTROPHILS % 79.4 % (40.0-76.0); PLATELET 147 x1000/uL (130-400); RED BLOOD CELL COUNT 1.84 mill/uL (4.2-5.4); RED CELL DISTRIBUTION WIDTH 16.1 % (11.6-14.6)
[2022-04-28 06:45] LABS: HEMOGLOBIN. 5.7 g/dL (12.0-16.0)
[2022-04-28 06:46] LABS: HEMATOCRIT. 17.2 % (36.0-48.0)
[2022-04-28] MEDS: INSULIN LISPRO 100 UNITS/ML SUBCUT SCH ×4 (06:55→21:19)
[2022-04-28 07:39] LABS: PHOSPHORUS 5.6 mg/dL (2.5-4.9)
[2022-04-28] MEDS: EZETIMIBE 10MG TABLET PO SCH (09:00)
[2022-04-28] MEDS: ASPIRIN 81MG TABLET PO SCH (09:00)
[2022-04-28] MEDS: ISOSORBIDE MONONITRATE 60MG TABLET SR 24HR PO SCH (09:00)
[2022-04-28] MEDS ORDERED: MEROPENEM 500 MG in SODIUM CHLORIDE 0.9% 50 ML IV SCH (14:45)
[2022-04-28] MEDS ORDERED: VANCOMYCIN 500MG PREMIX 100 ML IV NR (18:00)
[2022-04-28] MEDS: MEROPENEM-0.9% SODIUM CHLORIDE 50 ML IV SCH (18:27)
[2022-04-28] MEDS: ATORVASTATIN CALCIUM 40MG TABLET PO SCH (21:17)
[2022-04-28] MEDS: FAMOTIDINE 20MG TABLET PO SCH (21:17)
[2022-04-28] MEDS: EPOETIN ALFA-EPBX 10,000 UNIT/ML VIAL SUBCUT SCH (21:18)
[2022-04-29] VITALS (17 sets, daily range): BP systolic 100–160; BP diastolic 47–84
[2022-04-29 02:22] LABS: HEPATITIS B SURFACE ANTIGEN NEGATIVE
[2022-04-29] MEDS: ACETAMINOPHEN 325MG TABLET PO PRN ×2 (05:28→22:02)
[2022-04-29] MEDS: BLOOD SUGAR DIAGNOSTIC STRIP TEST SCH ×4 (06:33→21:00)
[2022-04-29] MEDS: INSULIN LISPRO 100 UNITS/ML SUBCUT SCH ×4 (06:34→23:10)
[2022-04-29] MEDS: ISOSORBIDE MONONITRATE 60MG TABLET SR 24HR PO SCH (08:32)
[2022-04-29] MEDS: ASPIRIN 81MG TABLET PO SCH (08:34)
[2022-04-29] MEDS: EZETIMIBE 10MG TABLET PO SCH (08:35)
[2022-04-29 13:48] LABS: HEMATOCRIT 20.5 % (36.0-48.0); HEMOGLOBIN 6.9 g/dL (12.0-16.0)
[2022-04-29 17:21] LABS: HEMATOCRIT 27.7 % (36.0-48.0); HEMOGLOBIN 9.1 g/dL (12.0-16.0)
[2022-04-29] MEDS: MEROPENEM-0.9% SODIUM CHLORIDE 50 ML IV SCH (18:43)
[2022-04-29] MEDS: ATORVASTATIN CALCIUM 40MG TABLET PO SCH (22:01)
[2022-04-29] MEDS: FAMOTIDINE 20MG TABLET PO SCH (22:02)
[2022-04-30] VITALS: BP 130/52
[2022-04-30 04:00] VITALS: BP 116/42
[2022-04-30] MEDS: BLOOD SUGAR DIAGNOSTIC STRIP TEST SCH ×4 (06:45→21:19)
[2022-04-30] MEDS: INSULIN LISPRO 100 UNITS/ML SUBCUT SCH ×4 (07:15→21:37)
[2022-04-30 08:00] VITALS: BP 118/97
[2022-04-30] MEDS: ISOSORBIDE MONONITRATE 60MG TABLET SR 24HR PO SCH (09:37)
[2022-04-30] MEDS: EZETIMIBE 10MG TABLET PO SCH (09:37)
[2022-04-30] MEDS: ASPIRIN 81MG TABLET PO SCH (09:37)
[2022-04-30 12:00] VITALS: BP 132/62
[2022-04-30 16:00] VITALS: BP 138/51
[2022-04-30] MEDS: MEROPENEM-0.9% SODIUM CHLORIDE 50 ML IV SCH (18:19)
[2022-04-30] MEDS: ENOXAPARIN 30MG/0.3ML SYR SUBCUT SCH (18:21)
[2022-04-30] MEDS: FAMOTIDINE 20MG TABLET PO SCH (21:18)
[2022-04-30] MEDS: ATORVASTATIN CALCIUM 40MG TABLET PO SCH (21:18)
[2022-04-30] MEDS: EPOETIN ALFA-EPBX 10,000 UNIT/ML VIAL SUBCUT SCH (21:19)
[2022-05-01] VITALS (15 sets, daily range): BP systolic 118–163; BP diastolic 48–96
[2022-05-01] MEDS: ACETAMINOPHEN 325MG TABLET PO PRN (05:54)
[2022-05-01] MEDS: BLOOD SUGAR DIAGNOSTIC STRIP TEST SCH ×2 (06:59→12:58)
[2022-05-01] MEDS: INSULIN LISPRO 100 UNITS/ML SUBCUT SCH ×2 (07:00→12:50)
[2022-05-01] MEDS ORDERED: ISOS60TA76 PO (08:48)
[2022-05-01] MEDS ORDERED: ASCO500C15 MT (08:48)
[2022-05-01] MEDS ORDERED: LIP40 PO (08:48)
[2022-05-01] MEDS ORDERED: ZINC100T8 MT (08:48)
[2022-05-01] MEDS ORDERED: FAMO20TA8 PO (08:48)
[2022-05-01] MEDS ORDERED: NEPVIT MT (08:48)
[2022-05-01] MEDS ORDERED: LINA5TAB MT (08:48)
[2022-05-01] MEDS ORDERED: ASPI-1160 PO (08:48)
[2022-05-01] MEDS ORDERED: SULF1TAB48 PO (08:48)
[2022-05-01] MEDS: ISOSORBIDE MONONITRATE 60MG TABLET SR 24HR PO SCH (11:40)
[2022-05-01] MEDS: EZETIMIBE 10MG TABLET PO SCH (11:40)
[2022-05-01] MEDS: ASPIRIN 81MG TABLET PO SCH (11:40)
== END 2022-05-01 14:20 | disposition home health service (06) | DRG 710 ==
LOC: ER 15:29 → 6EST 21:45 → EDBEDREQ 04-09 02:55 → EDBEDREQTM 04-09 02:55 → 3WST 04-09 10:59 → 5WST 04-18 08:58 → 6WST 04-30 16:18
PROVIDERS: ADMIT Internal Medicine; ATTEND Internal Medicine
PROC: 5A1D70Z Performance of Urinary Filtration, Intermittent, Less than 6 Hours Per Day (ICD-10-PCS; 2022-04-10)
PROC: 30233N1 Transfusion of Nonautologous Red Blood Cells into Peripheral Vein, Percutaneous Approach (ICD-10-PCS; 2022-04-11)
PROC: 047P3Z1 Dilation of Right Anterior Tibial Artery using Drug-Coated Balloon, Percutaneous Approach (ICD-10-PCS; principal; 2022-04-12)
PROC: 047K3Z1 Dilation of Right Femoral Artery using Drug-Coated Balloon, Percutaneous Approach (ICD-10-PCS; 2022-04-12)
PROC: B41F1ZZ Fluoroscopy of Right Lower Extremity Arteries using Low Osmolar Contrast (ICD-10-PCS; 2022-04-12)
PROC: 5A1D70Z Performance of Urinary Filtration, Intermittent, Less than 6 Hours Per Day (ICD-10-PCS; 2022-04-13)
PROC: 5A1D70Z Performance of Urinary Filtration, Intermittent, Less than 6 Hours Per Day (ICD-10-PCS; 2022-04-15)
PROC: 0Y6P0Z0 Detachment at Right 1st Toe, Complete, Open Approach (ICD-10-PCS; 2022-04-16)
PROC: 5A1D70Z Performance of Urinary Filtration, Intermittent, Less than 6 Hours Per Day (ICD-10-PCS; 2022-04-17)
PROC: 5A1D70Z Performance of Urinary Filtration, Intermittent, Less than 6 Hours Per Day (ICD-10-PCS; 2022-04-20)
PROC: 5A1D70Z Performance of Urinary Filtration, Intermittent, Less than 6 Hours Per Day (ICD-10-PCS; 2022-04-21)
PROC: 5A1D70Z Performance of Urinary Filtration, Intermittent, Less than 6 Hours Per Day (ICD-10-PCS; 2022-04-24)
PROC: 5A1D70Z Performance of Urinary Filtration, Intermittent, Less than 6 Hours Per Day (ICD-10-PCS; 2022-04-27)
PROC: 02HV33Z Insertion of Infusion Device into Superior Vena Cava, Percutaneous Approach (ICD-10-PCS; 2022-04-28)
PROC: B5181ZA Fluoroscopy of Superior Vena Cava using Low Osmolar Contrast, Guidance (ICD-10-PCS; 2022-04-28)
PROC: B548ZZA Ultrasonography of Superior Vena Cava, Guidance (ICD-10-PCS; 2022-04-28)
PROC: 5A1D70Z Performance of Urinary Filtration, Intermittent, Less than 6 Hours Per Day (ICD-10-PCS; 2022-04-29)
PROC: 5A1D70Z Performance of Urinary Filtration, Intermittent, Less than 6 Hours Per Day (ICD-10-PCS; 2022-05-01)
DX: A41.9 Sepsis, unspecified organism (principal); I21.4 Non-ST elevation (NSTEMI) myocardial infarction; E43 Unspecified severe protein-calorie malnutrition; E11.52 Type 2 diabetes mellitus with diabetic peripheral angiopathy with gangrene; I70.261 Atherosclerosis of native arteries of extremities with gangrene, right leg; D63.8 Anemia in other chronic diseases classified elsewhere; M86.171 Other acute osteomyelitis, right ankle and foot; I12.0 Hypertensive chronic kidney disease with stage 5 chronic kidney disease or end stage renal disease; N18.6 End stage renal disease; E11.22 Type 2 diabetes mellitus with diabetic chronic kidney disease; E78.5 Hyperlipidemia, unspecified; Z20.822 Contact with and (suspected) exposure to COVID-19; I25.10 Atherosclerotic heart disease of native coronary artery without angina pectoris; E11.69 Type 2 diabetes mellitus with other specified complication; M86.172 Other acute osteomyelitis, left ankle and foot; E87.5 Hyperkalemia; G44.209 Tension-type headache, unspecified, not intractable; Z68.24 Body mass index [BMI] 24.0-24.9, adult; Z99.2 Dependence on renal dialysis; I25.2 Old myocardial infarction; Z79.4 Long term (current) use of insulin; Z82.49 Family history of ischemic heart disease and other diseases of the circulatory system; Z83.3 Family history of diabetes mellitus; Z95.5 Presence of coronary angioplasty implant and graft
CPT/HCPCS: 36415; 36573; 37228; 37232; 71045; 73630; 73721; 75710; 80048; 80053; 80061; 80202; 82550; 82553; 82607; 82746; 82962; 83036; 83540; 83550; 83605; 83735; 83880; 84100; 84145; 84484; 85014; 85018; 85025; 85049; 85347; 85384; 85651; 86705; 86706; 86709; 86803; 86850; 86900; 86920; 87070; 87075; 87077; 87186; 87340; 87426; 88304; 88311; 90935; 93005; 93306; 93923; 93970; 97116; 97162; 97530; 99285; A6261; C1725; C1760; C1769; C1887; C1893; C1894; J0696; J0885; J1644; J1650; J1815; J1940; J2185; J2250; J2704; J3010; J3370; J3490; J7030; J7050; J7060; P9016; Q9967

== ENCOUNTER 2022-05-05 13:25 | Inpatient (IN) | payer MEDICAID ==
[~2022-05-05] VITALS: Ht 152.4 cm; Wt 61.0 kg
[~2022-05-05 13:25] MED LIST: ASCO500C15 MT; ASPI-1160 PO; FAMO20TA8 PO; ISOS60TA76 PO; LINA5TAB MT; LIP40 PO; NEPVIT MT; SULF1TAB48 PO; ZINC100T8 MT
[2022-05-05] MEDS ORDERED: MORPHINE SULFATE 4 MG/ML CPJ (NOT FOR IM USE) IV STA (14:25)
[2022-05-05] MEDS ORDERED: ONDANSETRON HCL 4MG/2ML INJ IV STA (14:25)
[2022-05-05] MEDS ORDERED: PIPERACILLIN/TAZ 3.375G PREMIX 50 ML IV ONE (14:30)
[2022-05-05] MEDS ORDERED: SODIUM CHLORIDE 0.9% 1000ML BAG (SEPSIS BOLUS) IV ONE (14:30)
[2022-05-05] MEDS ORDERED: VANCOMYCIN 1G PREMIX 200 ML IV ONE (14:30)
[2022-05-05 19:02] LABS: BASOPHILS % 0.8 % (0.0-2.0); EOSINOPHILS % 2.1 % (0.0-5.0); HEMATOCRIT. 26.5 % (36.0-48.0); HEMOGLOBIN. 8.7 g/dL (12.0-16.0); LYMPHOCYTES % 13.4 % (20.0-50.0); MEAN CORPUSCULAR HEMOGLOBIN 31.4 pg (28.0-32.0); MEAN CORPUSCULAR VOLUME 96.1 fL (81.0-99.0); MONOCYTES % 6.6 % (2.0-8.0); NEUTROPHILS % 77.1 % (40.0-76.0); PLATELET 166 x1000/uL (130-400); RED BLOOD CELL COUNT 2.76 mill/uL (4.2-5.4); RED CELL DISTRIBUTION WIDTH 18.7 % (11.6-14.6)
[2022-05-05 19:09] LABS: CHLORIDE 103 mEq/L (98-107)
[2022-05-05 19:11] LABS: INR 1.3; PARTIAL THROMBOPLASTIN TIME 40.6 sec (23.4-31.0); PROTHROMBIN TIME 13.5 sec (9.6-11.0)
[2022-05-05] MEDS ORDERED: PIPERACILLIN/TAZ 3.375G PREMIX 50 ML IV NR (19:30)
[2022-05-05] MEDS ORDERED: VANCOMYCIN 1G PREMIX 200 ML IV NR (19:30)
[2022-05-05] MEDS: ONDANSETRON HCL 4MG/2ML INJ IV NR ×2 (21:08→21:15)
[2022-05-05] MEDS: MORPHINE SULFATE 4 MG/ML CPJ (NOT FOR IM USE) IV NR ×2 (21:09→21:15)
[2022-05-05 21:51] VITALS: BP 122/68
[2022-05-05 22:30] VITALS: BP_SYST 111; BP_SYST 122; BP_DIAS 49; BP_DIAS 68
[2022-05-06] VITALS (16 sets, daily range): BP systolic 111–149; BP diastolic 49–81
[2022-05-06] MEDS ORDERED: DEXTROSE 50% WATER 50ML SYRINGE IV PRN (05:30)
[2022-05-06] MEDS ORDERED: HYDROCODONE/ACETAMINOPHEN 5/325MG TABLET PO NR (05:30)
[2022-05-06] MEDS: INSULIN LISPRO 100 UNITS/ML SUBCUT SCH ×4 (07:10→21:00)
[2022-05-06] MEDS: BLOOD SUGAR DIAGNOSTIC STRIP TEST SCH ×4 (07:32→21:44)
[2022-05-06 09:24] LABS: BASOPHILS % 0.8 % (0.0-2.0); EOSINOPHILS % 3.2 % (0.0-5.0); HEMATOCRIT. 26.2 % (36.0-48.0); HEMOGLOBIN. 8.7 g/dL (12.0-16.0); LYMPHOCYTES % 10.8 % (20.0-50.0); MEAN CORPUSCULAR HEMOGLOBIN 31.6 pg (28.0-32.0); MEAN CORPUSCULAR VOLUME 95.6 fL (81.0-99.0); MONOCYTES % 6.4 % (2.0-8.0); NEUTROPHILS % 78.8 % (40.0-76.0); PLATELET 163 x1000/uL (130-400); RED BLOOD CELL COUNT 2.74 mill/uL (4.2-5.4); RED CELL DISTRIBUTION WIDTH 21.4 % (11.6-14.6)
[2022-05-06] MEDS ORDERED: PIPERACILLIN/TAZOBACTAM 3.375 G in DEXTROSE 5% WATER 50 ML IV SCH (14:00)
[2022-05-06] MEDS ORDERED: NALOXONE HCL 0.4MG/ML VIAL IV PRN (16:30)
[2022-05-06] MEDS ORDERED: IOHEXOL-350 100 ML BOTTLE ONE (17:16)
[2022-05-06 18:56] LABS: HEPATITIS B SURFACE ANTIGEN NEGATIVE
[2022-05-06] MEDS ORDERED: EPOETIN ALFA-EPBX 4,000 UNIT/ML VIAL SUBCUT SCH (21:00)
[2022-05-06] MEDS: PIPERACILLIN/TAZOBACTAM 3.375 G in DEXTROSE 5% WATER 50 ML IV SCH (21:45)
[2022-05-06] MEDS: HYDROCODONE/ACETAMINOPHEN 5/325MG TABLET PO PRN (23:02)
[2022-05-07 04:00] VITALS: BP 140/59
[2022-05-07] MEDS: INSULIN LISPRO 100 UNITS/ML SUBCUT SCH ×4 (05:56→21:00)
[2022-05-07] MEDS: BLOOD SUGAR DIAGNOSTIC STRIP TEST SCH ×4 (05:56→21:45)
[2022-05-07 08:00] VITALS: BP 145/58
[2022-05-07] MEDS: PIPERACILLIN/TAZOBACTAM 3.375 G in DEXTROSE 5% WATER 50 ML IV SCH ×2 (09:10→21:50)
[2022-05-07 12:00] VITALS: BP 128/61
[2022-05-07] MEDS ORDERED: VANCOMYCIN 500MG PREMIX 100 ML IV NR (12:00)
[2022-05-07] MEDS ORDERED: NALOXONE HCL 0.4MG/ML VIAL IV PRN (16:30)
[2022-05-07 20:00] VITALS: BP 130/63
[2022-05-08] VITALS (10 sets, daily range): BP systolic 122–144; BP diastolic 58–89
[2022-05-08] MEDS: HYDROCODONE/ACETAMINOPHEN 5/325MG TABLET PO PRN ×2 (00:08→23:41)
[2022-05-08] MEDS: BLOOD SUGAR DIAGNOSTIC STRIP TEST SCH ×4 (06:13→21:54)
[2022-05-08] MEDS: INSULIN LISPRO 100 UNITS/ML SUBCUT SCH ×4 (06:14→21:57)
[2022-05-08] MEDS: PIPERACILLIN/TAZOBACTAM 3.375 G in DEXTROSE 5% WATER 50 ML IV SCH ×2 (08:46→21:52)
[2022-05-08] MEDS ORDERED: SODIUM BICARBONATE 4% (2.4MEQ) 5ML VIAL IV ONE (09:16)
[2022-05-08] MEDS ORDERED: VANCOMYCIN 500MG PREMIX 100 ML IV SCH (14:00)
[2022-05-08] MEDS ORDERED: EPOETIN ALFA-EPBX 4,000 UNIT/ML VIAL SUBCUT SCH (21:00)
[2022-05-09] VITALS: BP 114/55
[2022-05-09 04:00] VITALS: BP_SYST 113; BP_SYST 125; BP_DIAS 56; BP_DIAS 64
[2022-05-09] MEDS: BLOOD SUGAR DIAGNOSTIC STRIP TEST SCH ×4 (05:53→21:00)
[2022-05-09] MEDS: INSULIN LISPRO 100 UNITS/ML SUBCUT SCH ×4 (05:53→22:12)
[2022-05-09 08:00] VITALS: BP 142/65
[2022-05-09] MEDS: PIPERACILLIN/TAZOBACTAM 3.375 G in DEXTROSE 5% WATER 50 ML IV SCH ×2 (10:37→22:11)
[2022-05-09 12:00] VITALS: BP 143/67
[2022-05-09 16:00] VITALS: BP 113/64
[2022-05-09 20:00] VITALS: BP 142/70
[2022-05-10] VITALS (14 sets, daily range): BP systolic 107–157; BP diastolic 41–80
[2022-05-10] MEDS: HYDROCODONE/ACETAMINOPHEN 5/325MG TABLET PO PRN ×2 (00:40→21:45)
[2022-05-10] MEDS: INSULIN LISPRO 100 UNITS/ML SUBCUT SCH ×4 (05:45→21:00)
[2022-05-10] MEDS: BLOOD SUGAR DIAGNOSTIC STRIP TEST SCH ×4 (05:45→21:33)
[2022-05-10] MEDS: PIPERACILLIN/TAZOBACTAM 3.375 G in DEXTROSE 5% WATER 50 ML IV SCH ×2 (10:55→21:39)
[2022-05-10] MEDS ORDERED: IODIXANOL 320MG/ML 100 ML BOTTLE IV ONE (12:00)
[2022-05-10] MEDS ORDERED: LIDOCAINE HCL 1% 20ML VIAL (Pyxis) INJ ONE (12:00)
[2022-05-10] MEDS ORDERED: HEPARIN 1000 UNITS/ML 10ML ONE (12:00)
[2022-05-10] MEDS ORDERED: POLYMYXIN B SULFATE 500000 UNITS/VIAL ONE (13:08)
[2022-05-10] MEDS ORDERED: VANCOMYCIN HCL 1 GM/VIAL ONE (13:09)
[2022-05-10] MEDS ORDERED: BUPIVACAINE HCL/PF 0.5% (5MG/ML) 10ML ONE (13:09)
[2022-05-10] MEDS ORDERED: LIDOCAINE HCL 1% 10 MG/ML 10ML VIAL ONE (13:09)
[2022-05-10] MEDS ORDERED: FENTANYL CITRATE/PF 50MCG/ML 2ML VIAL ONE (13:28)
[2022-05-10] MEDS ORDERED: MIDAZOLAM HCL 2 MG/2 ML VIAL ONE (13:28)
[2022-05-10] MEDS ORDERED: PROTAMINE SULFATE 10MG/ML VIAL 25ML IV ONE (14:11)
[2022-05-10] MEDS ORDERED: ALTEPLASE 2MG/VIAL ITC NR (16:30)
[2022-05-10] MEDS: CLOPIDOGREL 75MG TABLET PO SCH (18:12)
[2022-05-10] MEDS ORDERED: VANCOMYCIN 500MG PREMIX 100 ML IV NR (21:00)
[2022-05-10 22:03] LABS: HEMATOCRIT. 27.4 % (36.0-48.0); HEMOGLOBIN. 8.8 g/dL (12.0-16.0); MEAN CORPUSCULAR HEMOGLOBIN 31.2 pg (28.0-32.0); MEAN CORPUSCULAR VOLUME 96.9 fL (81.0-99.0); MEAN PLATELET VOLUME 9.2 fl (7.4-10.4); PLATELET 155 x1000/uL (130-400); RED BLOOD CELL COUNT 2.83 mill/uL (4.2-5.4); RED CELL DISTRIBUTION WIDTH 23.2 % (11.6-14.6)
[2022-05-10 22:39] LABS: PLATELET ESTIMATE NORMAL
[2022-05-10 22:45] LABS: HEPATITIS B SURFACE ANTIGEN NEGATIVE
[2022-05-11] VITALS: BP 133/55
[2022-05-11 04:00] VITALS: BP 131/52
[2022-05-11 05:59] LABS: BASOPHILS % 0.8 % (0.0-2.0); HEMATOCRIT. 25.4 % (36.0-48.0); HEMOGLOBIN. 8.4 g/dL (12.0-16.0); LYMPHOCYTES % 8.1 % (20.0-50.0); MEAN CORPUSCULAR HEMOGLOBIN 31.7 pg (28.0-32.0); MEAN CORPUSCULAR VOLUME 96.2 fL (81.0-99.0); MEAN PLATELET VOLUME 9.2 fl (7.4-10.4); MONOCYTES % 5.9 % (2.0-8.0); NEUTROPHILS % 81.2 % (40.0-76.0); PLATELET 146 x1000/uL (130-400); RED BLOOD CELL COUNT 2.64 mill/uL (4.2-5.4); RED CELL DISTRIBUTION WIDTH 22.8 % (11.6-14.6)
[2022-05-11] MEDS: INSULIN LISPRO 100 UNITS/ML SUBCUT SCH ×4 (06:19→22:57)
[2022-05-11] MEDS: BLOOD SUGAR DIAGNOSTIC STRIP TEST SCH ×4 (06:19→21:00)
[2022-05-11 08:00] VITALS: BP 145/50
[2022-05-11 08:05] LABS: CHLORIDE 102 mEq/L (98-107)
[2022-05-11] MEDS: CLOPIDOGREL 75MG TABLET PO SCH ×2 (09:00→23:01)
[2022-05-11] MEDS: PIPERACILLIN/TAZOBACTAM 3.375 G in DEXTROSE 5% WATER 50 ML IV SCH ×2 (09:17→22:58)
[2022-05-11 12:00] VITALS: BP 146/70
[2022-05-11] MEDS ORDERED: PROPOFOL 200MG/20ML VIAL IV ONE (12:50)
[2022-05-11] MEDS ORDERED: MIDAZOLAM HCL 2 MG/2 ML VIAL ONE (12:53)
[2022-05-11] MEDS ORDERED: FENTANYL CITRATE/PF 50MCG/ML 2ML VIAL ONE (12:53)
[2022-05-11] MEDS ORDERED: LABETALOL 5MG/ML SYR 20 MG/4 ML SYRINGE IV PRN (13:30)
[2022-05-11] MEDS ORDERED: MEPERIDINE HCL/PF 25MG/ML CPJ IV PRN (13:30)
[2022-05-11] MEDS ORDERED: ONDANSETRON HCL 4MG/2ML INJ IV PRN (13:30)
[2022-05-11] MEDS ORDERED: HYDROMORPHONE HCL/PF 2MG/ML CPJ IV PRN (13:30)
[2022-05-11 17:30] VITALS: BP 110/76
[2022-05-11] MEDS ORDERED: BUPIVACAINE HCL/PF 0.5% (5MG/ML) 10ML ONE (19:58)
[2022-05-11] MEDS ORDERED: LIDOCAINE HCL 1% 10 MG/ML 10ML VIAL ONE (19:58)
[2022-05-11 20:00] VITALS: BP 136/68
[2022-05-11] MEDS ORDERED: EPOETIN ALFA-EPBX 4,000 UNIT/ML VIAL SUBCUT SCH (21:00)
[2022-05-11] MEDS: EPOETIN ALFA-EPBX 4,000 UNIT/ML VIAL SUBCUT SCH (22:58)
[2022-05-11] MEDS: EPOETIN ALFA-EPBX 10,000 UNIT/ML VIAL SUBCUT SCH (22:58)
[2022-05-11] MEDS: HYDROCODONE/ACETAMINOPHEN 5/325MG TABLET PO PRN (23:01)
[2022-05-12] VITALS (15 sets, daily range): BP systolic 114–147; BP diastolic 44–82
[2022-05-12] MEDS: BLOOD SUGAR DIAGNOSTIC STRIP TEST SCH ×4 (06:03→20:49)
[2022-05-12] MEDS: INSULIN LISPRO 100 UNITS/ML SUBCUT SCH ×4 (06:04→21:07)
[2022-05-12 06:54] LABS: HEMOGLOBIN. 7.8 g/dL (12.0-16.0); MEAN CORPUSCULAR HEMOGLOBIN 31.8 pg (28.0-32.0); MEAN CORPUSCULAR VOLUME 97.6 fL (81.0-99.0); PLATELET 142 x1000/uL (130-400); RED BLOOD CELL COUNT 2.46 mill/uL (4.2-5.4); RED CELL DISTRIBUTION WIDTH 23.2 % (11.6-14.6)
[2022-05-12] MEDS: CLOPIDOGREL 75MG TABLET PO SCH (09:10)
[2022-05-12] MEDS: HYDROCODONE/ACETAMINOPHEN 5/325MG TABLET PO PRN ×2 (12:01→20:40)
[2022-05-12] MEDS ORDERED: THROAT LOZENGES-BENZOCAINE/MENTH/CETYLPYRD CL LOZENGES MM PRN (17:30)
[2022-05-12] MEDS ORDERED: PHENOL/SODIUM PHENOLATE 1.4% SRPAY 177ML MM PRN (17:30)
[2022-05-12] MEDS ORDERED: NALOXONE HCL 0.4MG/ML VIAL IV PRN (18:00)
[2022-05-12 20:11] LABS: PLATELET ESTIMATE NORMAL
[2022-05-13] VITALS: BP 138/66
[2022-05-13] MEDS: HYDROCODONE/ACETAMINOPHEN 5/325MG TABLET PO PRN ×3 (03:27→21:55)
[2022-05-13 04:00] VITALS: BP 142/67
[2022-05-13] MEDS: BLOOD SUGAR DIAGNOSTIC STRIP TEST SCH ×4 (06:40→21:00)
[2022-05-13] MEDS: INSULIN LISPRO 100 UNITS/ML SUBCUT SCH ×4 (07:10→21:00)
[2022-05-13 08:00] VITALS: BP 137/59
[2022-05-13] MEDS: CLOPIDOGREL 75MG TABLET PO SCH (09:06)
[2022-05-13 12:00] VITALS: BP 130/55
[2022-05-13] MEDS ORDERED: FUROSEMIDE 40MG/4ML VIAL IVP NR (15:00)
[2022-05-13 16:00] VITALS: BP 123/67
[2022-05-13 20:00] VITALS: BP 136/71
[2022-05-13] MEDS: EPOETIN ALFA-EPBX 4,000 UNIT/ML VIAL SUBCUT SCH (22:49)
[2022-05-13] MEDS: EPOETIN ALFA-EPBX 10,000 UNIT/ML VIAL SUBCUT SCH (22:49)
[2022-05-14] VITALS (15 sets, daily range): BP systolic 122–156; BP diastolic 48–82
[2022-05-14] MEDS: HYDROCODONE/ACETAMINOPHEN 5/325MG TABLET PO PRN ×2 (03:12→12:45)
[2022-05-14] MEDS: BLOOD SUGAR DIAGNOSTIC STRIP TEST SCH ×3 (06:50→17:23)
[2022-05-14] MEDS: INSULIN LISPRO 100 UNITS/ML SUBCUT SCH ×3 (06:51→17:25)
[2022-05-14] MEDS: CLOPIDOGREL 75MG TABLET PO SCH (08:37)
[2022-05-14] MEDS ORDERED: DOXY150T5 MT (12:10)
== END 2022-05-14 19:57 | disposition home health service (06) | DRG 182 ==
LOC: ER 13:45 → 7EST 20:20 → EDBEDREQTM 20:36 → EDBEDREQ 20:36 → ENRESERV 20:52
PROVIDERS: ADMIT Internal Medicine; ATTEND Internal Medicine
PROC: 5A1D70Z Performance of Urinary Filtration, Intermittent, Less than 6 Hours Per Day (ICD-10-PCS; 2022-05-06)
PROC: 5A1D70Z Performance of Urinary Filtration, Intermittent, Less than 6 Hours Per Day (ICD-10-PCS; 2022-05-07)
PROC: 5A1D70Z Performance of Urinary Filtration, Intermittent, Less than 6 Hours Per Day (ICD-10-PCS; 2022-05-08)
PROC: 0W993ZZ Drainage of Right Pleural Cavity, Percutaneous Approach (ICD-10-PCS; 2022-05-09)
PROC: 047K3ZZ Dilation of Right Femoral Artery, Percutaneous Approach (ICD-10-PCS; principal; 2022-05-10)
PROC: 047N34Z Dilation of Left Popliteal Artery with Drug-eluting Intraluminal Device, Percutaneous Approach (ICD-10-PCS; 2022-05-10)
PROC: 047L3ZZ Dilation of Left Femoral Artery, Percutaneous Approach (ICD-10-PCS; 2022-05-10)
PROC: 047Q3ZZ Dilation of Left Anterior Tibial Artery, Percutaneous Approach (ICD-10-PCS; 2022-05-10)
PROC: 02HV33Z Insertion of Infusion Device into Superior Vena Cava, Percutaneous Approach (ICD-10-PCS; 2022-05-10)
PROC: B548ZZA Ultrasonography of Superior Vena Cava, Guidance (ICD-10-PCS; 2022-05-10)
PROC: 5A1D70Z Performance of Urinary Filtration, Intermittent, Less than 6 Hours Per Day (ICD-10-PCS; 2022-05-10)
PROC: 0Y6S0Z0 Detachment at Left 2nd Toe, Complete, Open Approach (ICD-10-PCS; 2022-05-11)
PROC: 0Y6U0Z0 Detachment at Left 3rd Toe, Complete, Open Approach (ICD-10-PCS; 2022-05-11)
PROC: 5A1D70Z Performance of Urinary Filtration, Intermittent, Less than 6 Hours Per Day (ICD-10-PCS; 2022-05-12)
PROC: 5A1D70Z Performance of Urinary Filtration, Intermittent, Less than 6 Hours Per Day (ICD-10-PCS; 2022-05-14)
DX: E11.52 Type 2 diabetes mellitus with diabetic peripheral angiopathy with gangrene (principal); J96.00 Acute respiratory failure, unspecified whether with hypoxia or hypercapnia; I12.0 Hypertensive chronic kidney disease with stage 5 chronic kidney disease or end stage renal disease; J18.9 Pneumonia, unspecified organism; E44.0 Moderate protein-calorie malnutrition; J90 Pleural effusion, not elsewhere classified; D63.1 Anemia in chronic kidney disease; L03.115 Cellulitis of right lower limb; M86.9 Osteomyelitis, unspecified; N18.6 End stage renal disease; E11.22 Type 2 diabetes mellitus with diabetic chronic kidney disease; E78.5 Hyperlipidemia, unspecified; Z20.822 Contact with and (suspected) exposure to COVID-19; E11.42 Type 2 diabetes mellitus with diabetic polyneuropathy; E11.628 Type 2 diabetes mellitus with other skin complications; E11.69 Type 2 diabetes mellitus with other specified complication; I25.10 Atherosclerotic heart disease of native coronary artery without angina pectoris; I70.203 Unspecified atherosclerosis of native arteries of extremities, bilateral legs; Z99.2 Dependence on renal dialysis; Z68.26 Body mass index [BMI] 26.0-26.9, adult; Z89.411 Acquired absence of right great toe; Z95.5 Presence of coronary angioplasty implant and graft; Z79.899 Other long term (current) drug therapy
CPT/HCPCS: 32555; 36415; 36573; 37224; 37230; 37232; 71045; 73630; 75635; 75710; 80048; 80053; 80202; 82962; 83036; 83605; 83615; 83880; 83986; 84145; 84484; 85025; 85347; 86705; 86709; 86803; 87340; 87426; 88108; 88304; 88311; 90935; 93005; 93970; 97162; 97530; 99285; C1725; C1760; C1769; C1887; C1893; C1894; C9803; J0885; J1644; J1815; J1940; J2250; J2270; J2405; J2543; J2704; J2720; J2997; J3010; J3370; J3490; J7030; J7060; Q9967

== ENCOUNTER 2022-05-20 10:51 | Emergency (ER) | payer MEDICAID ==
[~2022-05-20] VITALS: Ht 149.9 cm; Wt 50.0 kg
[~2022-05-20 10:51] MED LIST changes: +DOXY150T5 MT; -SULF1TAB48 PO
[2022-05-20 12:28] LABS: BASOPHILS % 0.7 % (0.0-2.0); EOSINOPHILS % 0.8 % (0.0-5.0); HEMATOCRIT. 30.6 % (36.0-48.0); HEMOGLOBIN. 9.8 g/dL (12.0-16.0); LYMPHOCYTES % 9.8 % (20.0-50.0); MEAN CORPUSCULAR VOLUME 99.5 fL (81.0-99.0); MEAN PLATELET VOLUME 9.1 fl (7.4-10.4); MONOCYTES % 7.3 % (2.0-8.0); NEUTROPHILS % 81.4 % (40.0-76.0); PLATELET 242 x1000/uL (130-400); RED BLOOD CELL COUNT 3.07 mill/uL (4.2-5.4); RED CELL DISTRIBUTION WIDTH 23.1 % (11.6-14.6)
[2022-05-20 12:29] LABS: CHLORIDE 99 mEq/L (98-107)
[2022-05-20 13:20] LABS: PLATELET ESTIMATE NORMAL
[2022-05-20] MEDS ORDERED: LIDOCAINE HCL 1% 10 MG/ML 10ML VIAL ONE (14:15)
[2022-05-20] MEDS ORDERED: HEPARIN 1000 UNITS/ML 10ML ONE (14:15)
[2022-05-20] MEDS ORDERED: CEFAZOLIN 1000MG PREMIX 50 ML IV ONE (14:30)
[2022-05-20] MEDS ORDERED: CEFAZOLIN 1000MG PREMIX 50 ML IV NR (14:30)
[2022-05-20 14:31] LABS: INR 1.2; PROTHROMBIN TIME 12.9 sec (9.6-11.0)
[2022-05-20 14:40] VITALS: BP 156/77
[2022-05-20 14:49] VITALS: BP 156/77
[2022-05-20 14:57] VITALS: BP 141/69
[2022-05-20 14:58] VITALS: BP_SYST 141; BP_SYST 156; BP_DIAS 69; BP_DIAS 77
[2022-05-20 15:02] VITALS: BP_SYST 141; BP_SYST 156; BP_DIAS 69; BP_DIAS 77
[2022-05-20 15:28] VITALS: BP 156/77
== END 2022-05-20 15:55 | disposition home or self-care (01) ==
LOC: ER 10:51 → CANBEDREQ 05-22 23:01
DX: T82.41XA Breakdown (mechanical) of vascular dialysis catheter, initial encounter (principal); I12.9 Hypertensive chronic kidney disease with stage 1 through stage 4 chronic kidney disease, or unspecified chronic kidney disease; E11.22 Type 2 diabetes mellitus with diabetic chronic kidney disease; N18.9 Chronic kidney disease, unspecified; Z79.82 Long term (current) use of aspirin; Y84.1 Kidney dialysis as the cause of abnormal reaction of the patient, or of later complication, without mention of misadventure at the time of the procedure
CPT/HCPCS: 36415; 36581; 71045; 77001; 80053; 85025; 85610; 93005; 96365; 99285; C1769; J0690; J1644; J3490; Z7610

== ENCOUNTER 2022-08-01 22:57 | Emergency (ER) | payer MEDICAID ==
[~2022-08-01] VITALS: Ht 152.4 cm; Wt 55.0 kg
[2022-08-01 23:08] VITALS: O2SAT 98
[2022-08-01 23:58] LABS: BASOPHILS % 0.5 % (0.0-2.0); HEMATOCRIT. 36.2 % (36.0-48.0); HEMOGLOBIN. 10.7 g/dL (12.0-16.0); MEAN CORPUSCULAR HEMOGLOBIN 29.3 pg (28.0-32.0); MEAN CORPUSCULAR VOLUME 99.7 fL (81.0-99.0); MEAN PLATELET VOLUME 9.3 fl (7.4-10.4); MONOCYTES % 5.4 % (2.0-8.0); NEUTROPHILS % 81.1 % (40.0-76.0); PLATELET 159 x1000/uL (130-400); RED BLOOD CELL COUNT 3.63 mill/uL (4.2-5.4); RED CELL DISTRIBUTION WIDTH 23.4 % (11.6-14.6)
[2022-08-01 23:59] LABS: CHLORIDE 109 mEq/L (98-107)
[2022-08-02 06:23] LABS: PLATELET ESTIMATE NORMAL
[2022-08-02] MEDS ORDERED: VANCOMYCIN 1G PREMIX 200 ML IV ONE (06:30)
[2022-08-02] MEDS ORDERED: PIPERACILLIN/TAZ 3.375G PREMIX 50 ML IV ONE (06:30)
[2022-08-02 07:00] VITALS: BP 136/72; PULSE 80; RESP 15; TEMP 98.4
== END 2022-08-02 07:00 | disposition short-term general hospital (02) ==
LOC: ER 23:27
DX: M86.8X6 Other osteomyelitis, lower leg (principal); I12.0 Hypertensive chronic kidney disease with stage 5 chronic kidney disease or end stage renal disease; E11.22 Type 2 diabetes mellitus with diabetic chronic kidney disease; N18.6 End stage renal disease; Z99.2 Dependence on renal dialysis; Z20.822 Contact with and (suspected) exposure to COVID-19
CPT/HCPCS: 99285; 80053; 82962; 85025; 36415; 96365; 87426; 73630; J2543; C9803